=== PATIENT | male | born 1970 | race Caucasian/White ===

== ENCOUNTER → 2018-07-26 | Outpatient (CLI) | payer BC ==
[~2018-07-26] MED LIST: ALBU90AE INH; INSU100I13 SC; INSU100I18 SC; synthroid PO
[2018-07-26 11:56] LABS: ALANINE AMINOTRANSFERASE 24 U/L (12-78); ALBUMIN 3.9 g/dL (3.4-5.0); ANION GAP 3 mmol/L (5-15); CALCIUM 8.7 mg/dL (8.5-10.1); CHLORIDE 110 mmol/L (98-107)
[2018-07-26 11:58] LABS: ALKALINE PHOSPHATASE 66 U/L (45-117); BILIRUBIN,TOTAL 0.7 mg/dL (0.2-1.0); TOTAL PROTEIN 7.7 g/dL (6.4-8.2)
== END | disposition home or self-care (01) ==
LOC: STAR 10:39
PROVIDERS: ATTEND Surgery
DX: Z01.818 Encounter for other preprocedural examination (principal); K42.9 Umbilical hernia without obstruction or gangrene
CPT/HCPCS: 36415; 80053; 93005

== ENCOUNTER 2018-08-01 08:44 | Day surgery (SDC) | payer BC ==
[~2018-08-01] VITALS: Ht 185.4 cm; Wt 110.9 kg
[~2018-08-01 08:44] MED LIST changes: +ACETAMINOPHEN 500 MG TABLET PO ONE; +BUPIVACAINE/PF-EPI 0.5% 1:200K ONE; +DIAZEPAM 5 MG TABLET PO ONE; +GABAPENTIN 300 MG CAPSULE PO ONE
[2018-08-01] MEDS ORDERED: LACTATED RINGERS 1,000 ML IV SCH (09:03)
[2018-08-01 09:07] VITALS: BP 127/83
[2018-08-01] MEDS ORDERED: MIDAZOLAM 1 MG/ML, 2ML ONE (10:23)
[2018-08-01] MEDS ORDERED: FENTANYL PF 250 MCG/5ML ONE (10:24)
[2018-08-01] MEDS ORDERED: LIDOCAINE 2%, 6 ML JEL.PF.APP MM ONE (10:29)
[2018-08-01] MEDS ORDERED: DEXAMETHASONE 4 MG/ML, 1ML ONE (10:35)
[2018-08-01] MEDS ORDERED: KETOROLAC 30 MG/1 ML ONE (10:35)
[2018-08-01] MEDS ORDERED: NEOSTIGMINE 1 MG/ML, 10ML ONE (11:26)
[2018-08-01] MEDS ORDERED: GLYCOPYRROLATE 0.2MG/1ML, 5ML ONE (11:26)
[2018-08-01] MEDS ORDERED: CEFAZOLIN 1,000 MG ONE (11:26)
[2018-08-01] MEDS ORDERED: PROPOFOL 10 MG/ML, 20ML ONE (11:26)
[2018-08-01] MEDS ORDERED: ROCURONIUM 10MG/ML,5ML ONE (11:26)
[2018-08-01] MEDS ORDERED: ONDANSETRON 2MG/ML, 2ML ONE (11:26)
[2018-08-01] MEDS ORDERED: SUCCINYLCHOLINE 20 MG/ML, 10ML ONE (11:26)
[2018-08-01] MEDS ORDERED: hydrALAzine 20 MG/ML, 1ML IV PRN (11:30)
[2018-08-01] MEDS ORDERED: SCOPOLAMINE PATCH, 1.5MG PATCH.TD72 TD PRN (11:30)
[2018-08-01] MEDS ORDERED: PROMETHAZINE 25 MG/ML, 1ML IV PRN (11:30)
[2018-08-01] MEDS ORDERED: FENTANYL PF 100 MCG/2ML IV PRN (11:30)
[2018-08-01] MEDS ORDERED: ALBUTEROL/IPRATROPIUM 2.5MG/0.5MG, 3 ML NPPB PRN (11:30)
[2018-08-01] MEDS ORDERED: LABETALOL 5MG/ML, 20ML IV PRN (11:30)
[2018-08-01] MEDS ORDERED: ONDANSETRON 2MG/ML, 2ML IV PRN (11:30)
[2018-08-01] MEDS ORDERED: MIDAZOLAM 1 MG/ML, 2ML IV PRN (11:30)
[2018-08-01] MEDS ORDERED: MEPERIDINE/PF 25MG/0.5ML IVPush PRN (11:30)
[2018-08-01] MEDS ORDERED: OXYcodone 5 MG/5 ML ORAL.SOL UDC ONE ×2 (11:52→12:04)
[2018-08-01] MEDS: OXYcodone 5 MG/5 ML ORAL.SOL UDC PO PRN ×2 (11:55→12:07)
[2018-08-01] MEDS ORDERED: FENTANYL PF 100 MCG/2ML ONE (12:04)
[2018-08-01] MEDS ORDERED: HYDROmorphone 1 MG/ML, 1ML ONE (12:04)
[2018-08-01] MEDS: HYDROmorphone 2 MG/ML, 1ML IVPush PRN ×3 (12:14→12:38)
[2018-08-01] MEDS ORDERED: DEXTROSE 50%, 50ML SYRINGE ONE (12:33)
[2018-08-01] MEDS ORDERED: DEXTROSE 50%, 50ML SYRINGE IVPush ONE (13:00)
== END 2018-08-01 15:00 | disposition home or self-care (01) ==
LOC: OUT 08:44
PROVIDERS: ATTEND Surgery
DX: K42.9 Umbilical hernia without obstruction or gangrene (principal); J44.9 Chronic obstructive pulmonary disease, unspecified; E11.9 Type 2 diabetes mellitus without complications; E78.5 Hyperlipidemia, unspecified; Z88.1 Allergy status to other antibiotic agents; Z72.89 Other problems related to lifestyle; Z79.4 Long term (current) use of insulin; Z88.8 Allergy status to other drugs, medicaments and biological substances
CPT/HCPCS: 49652; 82962; C1781; J0330; J0690; J1100; J1170; J1885; J2250; J2405; J2704; J2710; J3010; J3490; J7120; S2900